=== PATIENT | female | born 1985 | race Caucasian/White ===

== ENCOUNTER 2017-02-17 17:04 | Emergency (ER) | payer BC ==
[2017-02-17 17:17] VITALS: BP 143/88
--- NOTE | 2017-02-17 17:21 | UC ---
Cardiac HPI - HPI Summary HPI Summary: 31 YEAR OLD FEMALE PRESENT WITH COMPLAINS OF LEFT SIDED CHEST PAIN. THE PATIENT HAS A HISTORY OF PANIC ATTACKS. - History of Current Complaint Chief Complaint: UCGeneralIllness Stated Complaint: PANIC ATTACK Time Seen by Provider: 02/17/17 17:18 Hx Last Menstrual Period: IUD - Allergy/Home Medications Allergies/Adverse Reactions: Allergies Allergy/AdvReac Type Severity Reaction Status Date / Time bee Allergy Swelling Uncoded 02/17/17 17:17 Home Medications: Home Medications NK [No Home Medications Reported] 02/17/17 [History Confirmed 02/17/17] PMH/Surg Hx/FS Hx/Imm Hx Previously Healthy: Yes - Surgical History Surgical History: Yes Surgery Procedure, Year, and Place: x2 c section - Social History Alcohol Use: None Substance Use Type: None Smoking Status (MU): Heavy Every Day Tobacco Smoker Amount Used/How Often: 1 ppd Review of Systems Constitutional: Negative Skin: Negative Eyes: Negative ENT: Negative Respiratory: Negative Cardiovascular: Chest Pain Gastrointestinal: Negative Genitourinary: Negative Motor: Negative Neurovascular: Negative Musculoskeletal: Negative Neurological: Negative Psychological: Negative All Other Systems Reviewed And Are Negative: Yes Physical Exam Triage Information Reviewed: Yes Vital Signs: Initial Vital Signs Temp 37.2 C 02/17/17 17:08 Pulse 100 02/17/17 17:08 Resp 14 02/17/17 17:08 BP 143/88 02/17/17 17:08 Pulse Ox 99 02/17/17 17:08 Eye Exam: Normal ENT Exam: Normal Dental Exam: Normal Neck exam: Normal Neck: Positive: 1 Respiratory Exam: Normal Cardiovascular Exam: Normal Abdominal Exam: Normal Musculoskeletal Exam: Normal Neurological Exam: Normal Psychological Exam: Normal Skin Exam: Normal - Clinical Impression Provider Diagnoses: CHEST PAIN Discharge - Discharge Plan Condition: Stable Disposition: HOME Patient Education Materials: Chest Pain (ED) Referrals: IZABEL Orta [Primary Care Provider] - Additional Instructions: PLEASE GO TO ER TO RULE OUT NM.
[2017-02-17] MEDS ORDERED: Aspirin Low Dose CHEW TAB* 81 MG ONE (17:33)
[2017-02-18] MEDS ORDERED: Aspirin Low Dose CHEW TAB* 81 MG PO SCH (09:00)
== END 2017-02-17 17:42 | disposition home or self-care (01) ==
LOC: UCCORT 17:04
DX: R07.89 Other chest pain (principal); F41.9 Anxiety disorder, unspecified; Z91.030 Bee allergy status; F17.210 Nicotine dependence, cigarettes, uncomplicated
CPT/HCPCS: 93005; 99202; A9270-GY; G0463